=== PATIENT | male | born 1985 | race Asian ===

== ENCOUNTER 2023-03-04 20:38 | Emergency (ER) | payer SELFPAY ==
[2023-03-04] MEDS ORDERED: LIDOCAINE 2% MPF 5 ML VIAL ONE (21:25)
[2023-03-04] MEDS ORDERED: TDAP (DIPHTH,PERTUSS(ACELL),TET VAC) 0.5 ML VIAL IMVAC ONE (21:25)
--- NOTE | 2023-03-04 22:15 | EDPHYS ---
Physician Documentation [facility] Name: Adonis Mcleod Age: 37 yrs Sex: Male : 1985 Arrival Date: 03/04/2023 Time: 20:38 Bed 10 Private MD: ED Physician Kam Pedraza HPI: 03/04 21:20 This 37 yrs old Male presents to ER via Ambulatory with complaints of FISH HOOK cp LODGED IN HAND. 21:20 The patient or guardian reports a puncture wound, fish hook. cp 21:20 The complaints affect the left middle finger proximal phalanx dorsal side. Context: The cp problem was sustained outdoors. Onset: The symptoms/episode began/occurred just prior to arrival. Associated signs and symptoms: The patient has no apparent associated signs or symptoms. Severity of symptoms: in the emergency department the symptoms are unchanged. Historical: - Allergies: 20:57 No Known Allergies; nj1 - PMHx: 20:57 None; nj1 - PSHx: 20:57 None; nj1 - Immunization history:: Last tetanus immunization: unknown. - Social history:: Smoking status: Patient denies any tobacco usage or history of. ROS: 21:25 MS/extremity: Positive for puncture, tenderness, of the left middle finger proximal cp phalanx dorsal side, embedded fish hook, 21:25 Neuro: Negative for numbness, weakness, cp 21:25 All other systems are negative, Exam: 21:30 Constitutional: The patient appears in no acute distress, alert, awake, comfortable, cp well developed, well nourished, 21:30 Head/Face: Normocephalic, atraumatic. cp 21:30 Chest/axilla: Inspection: normal, 21:30 Cardiovascular: Rate: tachycardic, 21:30 Respiratory: the patient does not display signs of respiratory distress, Respirations: normal, no use of accessory muscles, no retractions, 21:30 Abdomen/GI: Inspection: abdomen appears normal, 21:30 Musculoskeletal/extremity: Extremities: grossly normal except: noted in the left middle finger: puncture type wounds noted dorsal side proximal phalanx left middle finger with embedded metal fish hook, full AROM, finger is neurovascular intact, Vital Signs: 20:44 BP 129 / 81; Pulse 106; Resp 17; Temp 97.9(O); Pulse Ox 95% on R/A; Weight 81.65 kg; nj1 Height 5 ft. 10 in. ; Pain 5/10; 20:44 Body Mass Index 25.83 (81.65 kg, 177.8 cm) [facility] 20:44 Pain Scale: Adult nj Procedures: 22:15 Foreign Body Removal: a fishhook, from the left middle finger proximal phalanx dorsal cp side, by push through and end cut with bolt cutters. The patient tolerated the removal well. MDM: 21:01 Patient medically screened. cp 22:00 Differential diagnosis: open fracture, tendon injury. cp 22:14 Data reviewed: vital signs, nurses notes, radiologic studies, plain films. cp 22:14 Independent interpretation of the following test(s) in the Emergency Department X-Ray: cp My interpretation is images of left hand negative for fracture and/or retained foreign body. 03/04 21:56 Order name: XRAY Finger-Thumb Left: left middle cp 03/04 22:13 Order name: Splint; Complete Time: 22:28 cp 03/04 22:13 Order name: Wound Care: please clean and irrigate wound; Complete Time: 22:28 cp Administered Medications: 21:16 Drug: Tetanus-Diphtheria Toxoid IM Adult 0.5 ml IM once; Provide Vaccine Information ap3 Statement (VIS). 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 Questions and/or ap3 concerns addressed. VIS edition date: Nov 20, 2020.; No adverse reaction 22:02 Drug: Lidocaine Infiltration (2 %) 5 ml 5 ml Infiltration once; to bedside {Note: by ap3 maurisio, PA.} Volume: 5 ml; Route: Infiltration; 22:16 Drug: Doxycycline PO 200 mg PO once Route: PO; ap3 22:28 Follow up: Response: No adverse reaction ap3 22:17 Not Given (Patient Refused): [id number] mg PO once ap3 Disposition Summary: 03/04/23 22:14 Discharge Ordered Notes: Location: Home cp Problem: new cp Symptoms: have improved cp Condition: Stable cp Diagnosis - Puncture wound with foreign body of left middle finger without damage to nail, cp initial encounter Followup: cp - With: Emergency Department - When: 2 - 3 days - Reason: Worsening of condition Discharge Instructions: - Discharge Summary Sheet cp - Puncture Wound cp - [place] Removal cp Forms: - Medication Reconciliation Form cp - Thank You Letter cp - Antibiotic Education cp - Prescription Opioid Use cp - Patient Portal Instructions cp - Leadership Thank You Letter cp Prescriptions: - Ibuprofen 800 mg Oral Tablet - take 1 tablet ORAL route every 8 hours As needed take with food; 30 tablet; cp Refills: 0, Product Selection Permitted - Doxycycline Hyclate 100 mg Oral Tablet - take 1 tablet ORAL route every 12 hours; 20 tablet; Refills: 0, Product cp Selection Permitted Addendum: 03/05/2023 22:34 I was immediately available for consultation during this patient's visit. I did not e c2 personally see the patient or guide the patient's care. . Signatures: Dispatcher [employer] EDMS Dirk Stovall PA PA cp Prokisch, Amanda RN RN ap3 Margie Long RN RN nj1 Kam Pedraza MD MD ec2 Corrections: (The following items were deleted from the chart) 03:27 03/04 21:25 MS/extremity: Positive for puncture, of the left middle finger proximal cp phalanx dorsal side, cp 03/05 03:31 03:29 Foreign Body Removal: a fishhook, from the left middle finger proximal phalanx cp dorsal side, by push through and end cut with bolt cutters. The patient tolerated the removal well, cp
--- NOTE | 2023-03-04 22:15 | ER ---
Nurse's Notes [facility] Name: Adonis Mcleod Age: 37 yrs Sex: Male : 1985 Arrival Date: 03/04/2023 Time: 20:38 Bed 10 Private MD: Diagnosis: Puncture wound with foreign body of left middle finger without damage to nail, initial encounter Presentation: 03/04 20:44 Chief complaint: Patient states: Got fish hook stuck on left 3rd digit while fishing [employer] about 30 min ago. 20:44 Coronavirus screen: Vaccine status: Patient reports receiving the 2nd dose of the covid nj1 vaccine. Ebola Screen: Patient denies travel to an Ebola-affected area in the 21 days before illness onset. Initial Sepsis Screen: Does the patient meet any 2 criteria? HR > 90 bpm. No. Patient's initial sepsis screen is negative. Does the patient have a suspected source of infection? No. Patient's initial sepsis screen is negative. Risk Assessment: Do you want to hurt yourself or someone else? Patient reports no desire to harm self or others. Onset of symptoms was March 04, 2023 at 20:00. 20:44 Method Of Arrival: Ambulatory [facility] 20:44 Acuity: ABIEL 4 nj1 Historical: - Allergies: 20:57 No Known Allergies; nj1 - PMHx: 20:57 None; nj1 - PSHx: 20:57 None; nj1 Historical Immunization: - Administered Vaccines 22:16 Doxycycline PO 200 mg ap3 22:02 Lidocaine Infiltration (2 %) 5 ml ap3 21:16 Tetanus-Diphtheria Toxoid IM Adult 0.5 ml ap3 Religious Activities Director: [employer]; Exp: Sat Sep 07 2024; Lot #: [id number]; Series: 1 of 1; Patient Consent: Obtained; Date/Time: ; Source Name: Adonis Mcleod; Source Relationship: Self; Address Information: [address] [place] [address]; ; Education: Provided; VIS Presented Date: ; VIS Publication: Tetanus/Diphtheria (Td) Vaccine VIS 07/26/2016 (historic) - Immunization history:: Last tetanus immunization: unknown. - Social history:: Smoking status: Patient denies any tobacco usage or history of. Screenin:07 [facility] ED Fall Risk Assessment (Adult) History of falling in the last 3 months, ap3 including since admission No falls in past 3 months (0 pts). Abuse screen: Denies threats or abuse. Nutritional screening: No deficits noted. Tuberculosis screening: No symptoms or risk factors identified. Assessment: 22:07 General: Appears in no apparent distress. Behavior is calm, cooperative, appropriate ap3 for age. Pain: Complains of pain in left middle finger. Neuro: Level of Consciousness is awake, alert, obeys commands, Oriented to person, place, time, situation. Cardiovascular: Patient's skin is warm and dry. Respiratory: Airway is patent Respiratory effort is even, unlabored, Respiratory pattern is regular, symmetrical. Derm: Wound noted left middle finger. Vital Signs: 20:44 BP 129 / 81; Pulse 106; Resp 17; Temp 97.9(O); Pulse Ox 95% on R/A; Weight 81.65 kg; nj1 Height 5 ft. 10 in. ; Pain 5/10; 20:44 Body Mass Index 25.83 (81.65 kg, 177.8 cm) nj1 20:44 Pain Scale: Adult nj1 ED Course: 20:45 Patient arrived in ED. jj6 20:57 Triage completed. nj1 20:57 Arm band placed on right wrist. nj1 21:00 Dirk Stovall PA is PHCP. cp 21:00 Kam Pedraza MD is Attending Physician. cp 22:02 Mel Alonso, RAMIN is Primary Nurse. ap3 22:07 XRAY Finger-Thumb Left: left middle In Process Unspecified. EDMS 22:08 Patient has correct armband on for positive identification. Bed in low position. Call ap3 light in reach. Pulse ox on. NIBP on. Door closed. Noise minimized. 22:08 Provided Education on: wound care and discharge instructions. ap3 22:09 No provider procedures requiring assistance completed. Patient did not have IV access ap3 during this emergency room visit. Administered Medications: 21:16 Drug: Tetanus-Diphtheria Toxoid IM Adult 0.5 ml IM once; Provide Vaccine Information ap3 Statement (VIS). {Religious Activities Director: [employer]; Exp: Sat Sep 07 2024; Lot #: [id number]; Series: 1 of 1; Patient Consent: Obtained; Date/Time: ; Source Name: Adonis Mcleod; Source Relationship: Self; Address Information: [address] [place] [id number]; ; Education: Provided; VIS Presented Date: ; VIS Publication: Tetanus/Diphtheria (Td) Vaccine VIS 07/26/2016 (historic)} Route: IM; Site: left deltoid; 22:13 Follow up: Response: (VIS) Vaccine information sheet provided today. Questions and/or ap3 concerns addressed. VIS edition date: Nov 20, 2020.; No adverse reaction 22:02 Drug: Lidocaine Infiltration (2 %) 5 ml 5 ml Infiltration once; to bedside {Note: by ap3 GEMA stovall.} Volume: 5 ml; Route: Infiltration; 22:16 Drug: Doxycycline PO 200 mg PO once Route: PO; ap3 22:28 Follow up: Response: No adverse reaction ap3 22:17 Not Given (Patient Refused): [id number] mg PO once ap3 Medication: 22:07 Vaccine Information Statement (VIS) provided today. Questions and/or concerns ap3 addressed. VIS edition date: November 2020. Outcome: 22:14 Discharge ordered by . cp 22:29 Discharged to home ambulatory, ap3 22:29 Condition: good 22:29 Discharge instructions given to patient, Instructed on discharge instructions, follow up and referral plans. medication usage, Demonstrated understanding of instructions, follow-up care, medications, 22:30 Patient left the ED. ap3 Signatures: Dispatcher [employer] EDMS Dirk Stovall PA PA cp Prokisch, Amanda, RN RN ap3 Jacqueline Montez jj6 Margie Long, RN RN nj1
[2023-03-04] MEDS ORDERED: IBUPROFEN 400 MG TAB ONE (22:28)
[2023-03-04] MEDS ORDERED: DOXYCYCLINE 100 MG CAP PO ONE (22:28)
--- NOTE | 2023-03-04 22:35 | RAD REPORT ---
EXAM DESCRIPTION: RAD - Finger-Thumb Left - 03/04/2023 10:06 pm CLINICAL HISTORY: Finger pain. Removal foreign body FINDINGS: No fracture or dislocation. A radiopaque foreign body is not seen
[2023-03-04 22:51] VITALS: BP 129/81; TEMP 97.9; O2SAT 95
== END 2023-03-04 22:30 | disposition home or self-care (01) ==
LOC: ER 20:38
DX: S61.243A Puncture wound with foreign body of left middle finger without damage to nail, initial encounter (principal)
CPT/HCPCS: 90471; 99284; J2001